=== PATIENT | male | born 1990 | race African-American/Black ===

== ENCOUNTER 2017-08-28 22:07 | Emergency (ER) | payer SELFPAY, BC | END 2017-08-29 04:40 | disposition left against medical advice (07) | LOC: E/R 08-29 04:40 | DX: Z53.21 Procedure and treatment not carried out due to patient leaving prior to being seen by health care provider (principal) ==

== ENCOUNTER → 2017-08-30 | Emergency (ER) | payer OTHER, BC | END | disposition home or self-care (01) | LOC: E/R 16:18 | DX: J06.9 Acute upper respiratory infection, unspecified (principal) | CPT/HCPCS: 99284 ==

== ENCOUNTER 2018-02-02 16:42 | Emergency (ER) | payer OTHER | END 2018-02-02 17:00 | disposition home or self-care (01) | LOC: E/R 16:42 | DX: J06.9 Acute upper respiratory infection, unspecified (principal) | CPT/HCPCS: 99283 ==